=== PATIENT | female | born 1955 | race Caucasian/White ===

== ENCOUNTER 2017-02-05 12:10 | Emergency (ER) | payer MEDICARE, OTHER ==
[~2017-02-05] VITALS: Ht 165.1 cm; Wt 110.0 kg
[2017-02-05 12:11] VITALS: BP 164/76; PULSE 62; RESP 24; TEMP 98.7; O2SAT 98
--- NOTE | 2017-02-05 12:40 | PD ---
HPI Chief Complaint: Pain: Acute or Chronic Time Seen by Provider: 12:25 Travel History International Travel<30 days: No Contact w/Intl Traveler<30days: No Traveled to known affect area: No History of Present Illness HPI 61-year-old female who reports a history of traumatic brain injury which resulted in a seizure disorder approximately 11 years ago, meningioma, ascending aortic aneurysm, atrial fibrillation on eliquis, COPD, presents for evaluation of left leg pain. She reports that she flew here 1 month ago from [place]. She plans on moving here permanently. 2 weeks ago she developed pain in the posterior left lower calf/ankle region and this is the primary thing that is prompted evaluation today. The pain is worse with movement and walking. She does not recall any trauma. She does note that yesterday evening she had one episode of nausea and one episode of diarrhea but today she has had no nausea or diarrhea. She also reports that her told her that she fell out of bed in the middle the night and had generalized tonic-clonic seizure- like activity for 3 minutes. The patient reports that she had some incontinence of urine at this time. The patient does report a history of generalized tonic-clonic seizures in the past secondary to TBI and these to be quite frequent however that over the past 5 years she has been seizure free. She was previously on Topamax but this was discontinued 5 years ago. She is complaining of some headache. She denies chest pain or shortness of breath, fevers or chills, she does endorse chronic abdominal pain but denies any acute abdominal pain. Denies dysuria. She has no other complaints. [facility] Past Medical History Hx Anticoagulant Therapy: Yes Cardiovascular Problems: Yes Diabetes: Yes (?) Past Surgical History Hysterectomy: Yes Social History Alcohol Use: No Tobacco Use: No Substance Use: No Allergies-Medications (Allergen,Severity, Reaction): Coded Allergies: Codeine (Verified Allergy, Severe, Nausea/Vomiting, 02/05/17) Nitrates (Verified Allergy, Severe, Headache, 02/05/17) Nitroglycerin (Verified Allergy, Severe, Headache, 02/05/17) Sulfa (Verified Allergy, Severe, Rash, 02/05/17) Reported Meds & Prescriptions Reported Meds & Active Scripts Active Capsagel Maximum Strength Topical (Capsaicin) 0.075% Gel 1 Applic TOPICAL BID 14 Days Review of Systems Except as stated in HPI: all other systems reviewed are Neg Physical Exam Narrative GENERAL: Well-developed well-nourished female in no acute distress SKIN: Warm and dry. HEAD: Atraumatic. Normocephalic. EYES: Pupils equal and round. No scleral icterus. No injection or drainage. ENT: No nasal bleeding or discharge. Mucous membranes pink and moist. NECK: Trachea midline. No JVD. CARDIOVASCULAR: Regular rate and rhythm. No murmur appreciated. RESPIRATORY: No accessory muscle use. Clear to auscultation. Breath sounds equal bilaterally. GASTROINTESTINAL: Abdomen soft, minimal generalized tenderness without guarding or distention. MUSCULOSKELETAL: No obvious deformities. Tender to palpation left Achilles tendon. It is not ruptured. Some tenderness to palpation to the belly of the left calf musculature. No bony deformity. No pitting edema to the lower extremities. NEUROLOGICAL: Awake and alert. No obvious cranial nerve deficits. Motor grossly within normal limits. Normal speech. PSYCHIATRIC: Appropriate mood and affect; insight and judgment normal. Data Data Last Documented VS Vital Signs Date Time Temp Pulse Resp B/P Pulse Ox O2 Delivery O2 Flow Rate FiO2 02/05/17 13:12 96 02/05/17 12:11 98.7 62 24 164/76 Room Air Orders Us Leg Venous Doppler (02/05/17 12:37) Complete Blood Count With Diff (02/05/17 12:37) Electrocardiogram (02/05/17 ) Ct Brain W/O Iv Contrast(Rout) (02/05/17 ) Ecg Monitoring (02/05/17 12:37) Iv Access Insert/Monitor (02/05/17 12:37) Oximetry (02/05/17 12:37) Comprehensive Metabolic Panel (02/05/17 12:37) Sodium Chloride 0.9% Flush (Ns Flush) (02/05/17 12:45) Urinalysis - C+S If Indicated (02/05/17 12:37) Ondansetron Inj (Zofran Inj) (02/05/17 12:45) Labs Laboratory Tests Test 02/05/17 02/05/17 13:05 13:10 White Blood Count 11.1 TH/MM3 Red Blood Count 4.68 MIL/MM3 Hemoglobin 13.4 GM/DL Hematocrit 41.3 % Mean Corpuscular Volume 88.3 FL Mean Corpuscular Hemoglobin 28.6 PG Mean Corpuscular Hemoglobin 32.4 % Concent Red Cell Distribution Width 15.1 % Platelet Count 294 TH/MM3 Mean Platelet Volume 8.0 FL Neutrophils (%) (Auto) 57.9 % Lymphocytes (%) (Auto) 34.0 % Monocytes (%) (Auto) 6.5 % Eosinophils (%) (Auto) 1.1 % Basophils (%) (Auto) 0.5 % Neutrophils # (Auto) 6.5 TH/MM3 Lymphocytes # (Auto) 3.8 TH/MM3 Monocytes # (Auto) 0.7 TH/MM3 Eosinophils # (Auto) 0.1 TH/MM3 Basophils # (Auto) 0.1 TH/MM3 CBC Comment DIFF FINAL Differential Comment Sodium Level 145 MEQ/L Potassium Level 3.7 MEQ/L Chloride Level 108 MEQ/L Carbon Dioxide Level 30.5 MEQ/L Anion Gap 7 MEQ/L Blood Urea Nitrogen 19 MG/DL Creatinine 0.97 MG/DL Estimat Glomerular Filtration 58 ML/MIN Rate Random Glucose 97 MG/DL Calcium Level 8.8 MG/DL Total Bilirubin 0.5 MG/DL Aspartate Amino Transf 15 U/L (AST/SGOT) Alanine Aminotransferase 24 U/L (ALT/SGPT) Alkaline Phosphatase 54 U/L Total Protein 6.2 GM/DL Albumin 3.4 GM/DL Urine Color DARK-YELLOW Urine Turbidity HAZY Urine pH 5.5 Urine Specific [place] 1.026 Urine Protein TRACE mg/dL Urine Glucose (UA) NEG mg/dL Urine Ketones NEG mg/dL Urine Occult Blood NEG Urine Nitrite NEG Urine Bilirubin NEG Urine Urobilinogen LESS THAN 2.0 MG/DL Urine Leukocyte Esterase NEG Urine RBC 1 /hpf Urine WBC 2 /hpf Urine Squamous Epithelial 6 /hpf Cells Urine Bacteria OCC /hpf Urine Mucus FEW /lpf Microscopic Urinalysis Comment CULT NOT INDICATED MDM Medical Decision Making Medical Screen Exam Complete: Yes Emergency Medical Condition: Yes Medical Record Reviewed: Yes Interpretation(s) Doppler ultrasound CONCLUSION: No evidence for DVT. 5.8 x 1.3 x 2.6 cm Brewer's cyst in the popliteal fossa. CT brain normal Differential Diagnosis Achilles tendinitis, Achilles tendon strain, calcaneal bursitis, Achilles tendon rupture, DVT, breakthrough seizure, intracranial hemorrhage, electrolyte abnormality, hypoglycemia Narrative Course 61-year-old female referred here from [place] presents with 2 weeks of posterior left calf and left Achilles tendon pain. Examination reveals that her pain is primarily localized to left Achilles tendon suggesting tendinitis. She feels that her left lower leg is subjectively swollen although this is not objectively obvious. In addition last night she had a possible seizure, previous history of frequent seizures although she has not had one in 5 years. One episode of vomiting and diarrhea last night as well. She is complaining of headache since the fall. Plans for basic lab work, CT brain, ultrasound of left leg, urinalysis. Laboratory and imaging studies of been reviewed and found to be very reassuring. She has a Brewer cyst in the popliteal fossa which is not consistent with her area of discomfort. Negative for DVT. She appears to have tendinitis to the left Achilles tendon. She will be given capsaicin cream, encouraged to follow-up with a neurologist and primary care physician. Diagnosis Primary Impression: Achilles tendinitis Qualified Code: M76.62 - Achilles tendinitis of left lower extremity Additional Impression: Seizure Referrals: Neurologist Primary Care Physician Additional Instructions: Cream as needed. Gentle heel stretches several times a day. Ice pack several times a day to the affected area. Follow-up with a primary care physician and a neurologist. Return for any emergent medical conditions. Med/Other Pt SpecificInfo: Prescription(s) given Scripts Capsaicin Topical (Capsagel Maximum Strength Topical)0.075% Gel1 Applic TOPICAL BID 14 Days Ref 0 Prov:Isela Wisdom DO 02/05/17 Disposition: 01 DISCHARGE HOME Condition: Stable Kamron Gay February 05, 2017 12:40
[2017-02-05] MEDS ORDERED: SODIUM CHLORIDE 0.9% FLUSH 10 ML FLUSH IVF PRN (12:45)
[2017-02-05] MEDS ORDERED: ONDANSETRON HCL 4 MG/2 ML VIAL IVP ONE (12:45)
--- NOTE | 2017-02-05 13:06 | RADRPT ---
EXAM DATE/TIME: 02/05/2017 12:50 [facility] COMPARISON: No previous studies available for comparison. INDICATIONS : Frontal headache for 3 days, seizure last night with nausea and vomiting. RADIATION DOSE: 44.29 CTDIvol (mGy) MEDICAL HISTORY : Cardiovascular disease. Diabetes mellitus type 1. SURGICAL HISTORY : Hysterectomy. ENCOUNTER: Initial ACUITY: 3 days PAIN SCALE: 5/10 LOCATION: Bilateral flank TECHNIQUE: Multiple contiguous axial images were obtained of the head. Using automated exposure control and adj ustment of the mA and/or kV according to patient size, radiation dose was kept as low as reasonably a chievable to obtain optimal diagnostic quality images. FINDINGS: CEREBRUM: The ventricles are normal for age. No evidence of midline shift, mass lesion, hemorrhage or acute in farction. No extra-axial fluid collections are seen. POSTERIOR FOSSA: The cerebellum and brainstem are intact. The 4th ventricle is midline. The cerebellopontine angle i s unremarkable. EXTRACRANIAL: The visualized portion of the orbits is intact. SKULL: The calvaria is intact. No evidence of skull fracture. CONCLUSION: Normal examination. Napoleon Mai MD on February 05, 2017 at 13:04 Board Certified Radiologist. This report was verified electronically.
[2017-02-05 13:12] VITALS: O2SAT 96
[2017-02-05 13:23] LABS: AUTOMATED NEUTROPHIL # 6.5 TH/MM3 (1.8-7.7); BASOPHIL # 0.1 TH/MM3 (0-0.2); BASOPHIL % 0.5 % (0.0-2.0); EOSINOPHIL # 0.1 TH/MM3 (0-0.4); EOSINOPHIL % 1.1 % (0.0-4.0); HEMATOCRIT 41.3 % (35.0-46.0); HEMO FLAGS DIFF FINAL; LYMPHOCYTE # 3.8 TH/MM3 (1.0-4.8); MEAN CELL VOLUME 88.3 FL (80.0-100.0); MEAN CORPUSCULAR HEMOGLOBIN 28.6 PG (27.0-34.0); MEAN CORPUSCULAR HGB CONC 32.4 % (32.0-36.0); MONO % 6.5 % (0.0-8.0); NEUT % 57.9 % (16.0-70.0); PLATELET COUNT 294 TH/MM3 (150-450); RED BLOOD COUNT 4.68 MIL/MM3 (4.00-5.30); RED CELL DISTRIBUTION WIDTH 15.1 % (11.6-17.2); WHITE BLOOD COUNT 11.1 TH/MM3 (4.0-11.0)
[2017-02-05 13:43] LABS: ANION GAP 7 MEQ/L (5-15); AST (GOT) 15 U/L (15-37); BICARBONATE 30.5 MEQ/L (21.0-32.0); BLOOD UREA NITROGEN 19 MG/DL (7-18); CHLORIDE 108 MEQ/L (98-107); GLOMERULAR FILTRATION RATE 58 ML/MIN (>89); POTASSIUM 3.7 MEQ/L (3.5-5.1); SODIUM (NA) 145 MEQ/L (136-145)
[2017-02-05 13:46] LABS: BACTERIA, URINE OCC /hpf; BLOOD, URINE NEG (NEG); COMMENT (UR) CULT NOT INDICATED; CULTURE IF INDICATED CULT NOT INDICATED; GLUCOSE,URINE NEG (NEG); KETONE, URINE NEG (NEG); MUCUS URINE FEW /lpf (OCC); NITRITE,URINE NEG (NEG); PH, URINE 5.5 (5.0-8.5); SQUAMOUS EPITHELIAL CELL URINE 6 /hpf (0-5); URINE COLOR DARK-YELLOW (YELLW/STRAW)
[2017-02-05 13:46] LABS: ALKALINE PHOSPHATASE 54 U/L (45-117); ALT (GPT) 24 U/L (10-53); TOTAL BILIRUBIN ADULT 0.5 MG/DL (0.2-1.0)
--- NOTE | 2017-02-05 14:35 | RADRPT ---
EXAM DATE/TIME: 02/05/2017 13:55 [facility] COMPARISON: No previous studies available for comparison. INDICATIONS : Left leg pain. MEDICAL HISTORY : Left leg pain. SURGICAL HISTORY : Hysterectomy. ENCOUNTER: Initial ACUITY: 3 days PAIN SCORE: 5/10 LOCATION: Left leg. TECHNIQUE: Venous ultrasound of the leg was performed from the inguinal ligament to the proximal calf. Real-sterling e, color Doppler and spectral tracing, compression and augmentation techniques were used. FINDINGS: There is normal compressibility of the deep venous system from the inguinal region to the proximal ca lf. No echogenic clot is seen in the lumen of the common femoral, femoral, popliteal, and posterior tibial veins. There is a normal response of the venous system to proximal and distal augmentation an d respiration. CONCLUSION: No evidence for DVT. 5.8 x 1.3 x 2.6 cm Brewer's cyst in the popliteal fossa. Napoleon Mai MD on February 05, 2017 at 14:34 Board Certified Radiologist. This report was verified electronically.
--- NOTE | 2017-02-05 14:51 | PD ---
Physical Exam Narrative I, Dr. Wisdom, have reviewed the advance practice practitioner's documentation and am in agreement, met with the patient face to face, made the diagnosis, and the medical decision making was done by me. *My assessment and Findings: DVT vs. Brewer Cyst vs. tendonitis vs. muscle pain 61yo F with multiple complaints recently moved from [place]. Pt is mainly here because of left leg pain. Pt states it is swollen but simmons not appear more swollen than the other leg. Does have calf tenderness. US showed no evidence for DVT. 5.8 x 1.3 x 2.6cm Brewer's cyst in the popliteal fossa. Labs reviewed , negative CMP. UA showed no leukocyte or nitrite. CT brain negative. VS stable. Return precautions given. Data Data Last Documented VS Vital Signs Date Time Temp Pulse Resp B/P Pulse Ox O2 Delivery O2 Flow Rate FiO2 02/05/17 13:12 96 02/05/17 12:11 98.7 62 24 164/76 Room Air Orders Us Leg Venous Doppler (02/05/17 12:37) Complete Blood Count With Diff (02/05/17 12:37) Electrocardiogram (02/05/17 ) Ct Brain W/O Iv Contrast(Rout) (02/05/17 ) Ecg Monitoring (02/05/17 12:37) Iv Access Insert/Monitor (02/05/17 12:37) Oximetry (02/05/17 12:37) Comprehensive Metabolic Panel (02/05/17 12:37) Sodium Chloride 0.9% Flush (Ns Flush) (02/05/17 12:45) Urinalysis - C+S If Indicated (02/05/17 12:37) Ondansetron Inj (Zofran Inj) (02/05/17 12:45) Labs Laboratory Tests Test 02/05/17 02/05/17 13:05 13:10 White Blood Count 11.1 TH/MM3 Red Blood Count 4.68 MIL/MM3 Hemoglobin 13.4 GM/DL Hematocrit 41.3 % Mean Corpuscular Volume 88.3 FL Mean Corpuscular Hemoglobin 28.6 PG Mean Corpuscular Hemoglobin 32.4 % Concent Red Cell Distribution Width 15.1 % Platelet Count 294 TH/MM3 Mean Platelet Volume 8.0 FL Neutrophils (%) (Auto) 57.9 % Lymphocytes (%) (Auto) 34.0 % Monocytes (%) (Auto) 6.5 % Eosinophils (%) (Auto) 1.1 % Basophils (%) (Auto) 0.5 % Neutrophils # (Auto) 6.5 TH/MM3 Lymphocytes # (Auto) 3.8 TH/MM3 Monocytes # (Auto) 0.7 TH/MM3 Eosinophils # (Auto) 0.1 TH/MM3 Basophils # (Auto) 0.1 TH/MM3 CBC Comment DIFF FINAL Differential Comment Sodium Level 145 MEQ/L Potassium Level 3.7 MEQ/L Chloride Level 108 MEQ/L Carbon Dioxide Level 30.5 MEQ/L Anion Gap 7 MEQ/L Blood Urea Nitrogen 19 MG/DL Creatinine 0.97 MG/DL Estimat Glomerular Filtration 58 ML/MIN Rate Random Glucose 97 MG/DL Calcium Level 8.8 MG/DL Total Bilirubin 0.5 MG/DL Aspartate Amino Transf 15 U/L (AST/SGOT) Alanine Aminotransferase 24 U/L (ALT/SGPT) Alkaline Phosphatase 54 U/L Total Protein 6.2 GM/DL Albumin 3.4 GM/DL Urine Color DARK-YELLOW Urine Turbidity HAZY Urine pH 5.5 Urine Specific [place] 1.026 Urine Protein TRACE mg/dL Urine Glucose (UA) NEG mg/dL Urine Ketones NEG mg/dL Urine Occult Blood NEG Urine Nitrite NEG Urine Bilirubin NEG Urine Urobilinogen LESS THAN 2.0 MG/DL Urine Leukocyte Esterase NEG Urine RBC 1 /hpf Urine WBC 2 /hpf Urine Squamous Epithelial 6 /hpf Cells Urine Bacteria OCC /hpf Urine Mucus FEW /lpf Microscopic Urinalysis Comment CULT NOT INDICATED MDM Supervised Visit with GABRIELLE: Yes Interpretation(s) EKG: Sinus bradycardia at 51bpm. LAD. No ST segment elevation or depression. Scripts Capsaicin Topical (Capsagel Maximum Strength Topical)0.075% Gel1 Applic TOPICAL BID 14 Days Ref 0 Prov:Isela Wisdom DO 02/05/17 Isela Wisdom DO February 05, 2017 14:51
[2017-02-05] MEDS ORDERED: CAPS0.073 TOPICAL (14:56)
--- NOTE | 2017-02-06 13:04 | EKG ---
Date Performed: 02/05/2017 Time Performed: 13:08:04 PTAGE: 61 years EKG: SINUS BRADYCARDIA WITH SINUS ARRHYTHMIA BORDERLINE ECG NO PREVIOUS TRACING DOCTOR: Robert Faustin Interpretating Date/Time 02/06/2017 13:01:38
== END 2017-02-05 15:12 | disposition home or self-care (01) ==
LOC: NEPC 12:10
DX: M76.62 Achilles tendinitis, left leg (principal); R56.9 Unspecified convulsions; R00.1 Bradycardia, unspecified; I49.8 Other specified cardiac arrhythmias
CPT/HCPCS: 70450; 80053; 81001; 85025; 93005; 93971; 96374; 99284; J2405

== ENCOUNTER 2017-03-16 07:41 | Emergency (ER) | payer MEDICARE, OTHER ==
[2017-03-16] VITALS (7 sets, daily range): BP systolic 95–167; BP diastolic 53–95; PULSE 62–104; RESP 15–22; TEMP 97.9–98.2; O2SAT 96–99
[~2017-03-16] VITALS: Ht 165.1 cm; Wt 115.0 kg
[~2017-03-16 07:41] MED LIST: CAPS0.073 TOPICAL
--- NOTE | 2017-03-16 08:10 | PD ---
HPI Chief Complaint: Cardiac Complaint Time Seen by Provider: 07:56 Travel History International Travel<30 days: No Contact w/Intl Traveler<30days: No Traveled to known affect area: No History of Present Illness HPI 61yo F with PMH of aortic aneurysm, afib on eliquis, anxiety presents to the ED with c/o generalized fatigue, nausea, palpitations and intermittent left sided chest pain since yesterday. Describes pain has heaviness, left sided and nonradiating. Currently do not have sob but rather feels very anxious. Denies any fever, vomiting, abdominal pain, new focal weakness or numbness. Pt is from [place] and her physicians are there. 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 PFSH Past Medical History Hx Anticoagulant Therapy: Yes Cardiovascular Problems: Yes Diabetes: Yes (?) Past Surgical History Hysterectomy: Yes Social History Alcohol Use: No Tobacco Use: No Substance Use: No Allergies-Medications (Allergen,Severity, Reaction): Coded Allergies: Codeine (Verified Allergy, Severe, Nausea/Vomiting, 03/16/17) Nitrates (Verified Allergy, Severe, Headache, 03/16/17) Nitroglycerin (Verified Allergy, Severe, Headache, 03/16/17) Sulfa (Verified Allergy, Severe, Rash, 03/16/17) Reported Meds & Prescriptions Reported Meds & Active Scripts Active Reported Citalopram (Citalopram Hydrobromide) 40 Mg Tab 40 Mg PO HS Singulair (Montelukast Sodium) 10 Mg Tab 10 Mg PO HS Gabapentin 800 Mg Tab 800 Mg PO TID Toprol XL (Metoprolol Succinate) 50 Mg Tab 50 Mg PO BID Cymbalta DR (Duloxetine HCl) 60 Mg Capdr 60 Mg PO BID Dicyclomine (Dicyclomine HCl) 20 Mg Tab 20 Mg PO Q6HR Zantac (Ranitidine HCl) 150 Mg Tab 150 Mg PO BID Clonidine (Clonidine HCl) 0.3 Mg Tab 0.3 Mg PO HS Vitamin B Complex (B-Complex Vitamins) 1 Tab 1 Tab PO DAILY Multi-Vitamins (Multiple Vitamin) 1 Tab Tab 1 Tab PO DAILY Fluoxetine (Fluoxetine HCl) Unknown Strength Tab 1 Tab PO DAILY Prednisone 20 Mg Tab 20 Mg PO DAILY Restoril (Temazepam) 30 Mg Cap 30 Mg PO DAILY AT 1800 Vyvanse (Lisdexamfetamine Dimesylate) 70 Mg Cap 70 Mg PO DAILY Alprazolam 2 Mg Tab 4 Mg PO HS Alprazolam 0.5 Mg Tab 0.5 Mg PO BID PRN Eliquis (Apixaban) 5 Mg Tab 5 Mg PO BID Omeprazole 20 Mg Tab 20 Mg PO BID [place]cl[place] (Hydrocodone-Acetaminophen) 10-325 Mg Tab 1 Tab PO Q6H PRN Tramadol (Tramadol HCl) 50 Mg Tab 100 Mg PO Q6H PRN Ventolin Hfa 18 GM Inh (Albuterol Sulfate) 90 Mcg/Act Aer 2 Puff INH Q4H PRN Review of Systems Except as stated in HPI: all other systems reviewed are Neg Physical Exam Narrative GENERAL: 61yo F in mild distress. SKIN: Focused skin assessment warm/dry. HEAD: Atraumatic. Normocephalic. EYES: Pupils equal and round. No scleral icterus. No injection or drainage. ENT: No nasal bleeding or discharge. Mucous membranes pink and moist. NECK: Trachea midline. No JVD. CARDIOVASCULAR: Irregular and fluctuating between low 100s to 120. No murmur appreciated. RESPIRATORY: No accessory muscle use. Clear to auscultation. Breath sounds equal bilaterally. GASTROINTESTINAL: Abdomen soft, non-tender, nondistended. MUSCULOSKELETAL: No obvious deformities. No clubbing. No cyanosis. Trace lower ext edema. NEUROLOGICAL: Awake and alert. No obvious cranial nerve deficits. Motor grossly within normal limits. Normal speech. PSYCHIATRIC: Appropriate mood and affect; insight and judgment normal. Anxious. Data Data Last Documented VS Vital Signs Date Time Temp Pulse Resp B/P Pulse Ox O2 Delivery O2 Flow Rate FiO2 03/16/17 13:04 78 15 95/60 100 03/16/17 13:03 Room Air 03/16/17 07:44 97.9 Orders Electrocardiogram (03/16/17 ) Basic Metabolic Panel (Bmp) (03/16/17 08:06) Ckmb (Isoenzyme) Profile (03/16/17 08:06) Complete Blood Count With Diff (03/16/17 08:06) Magnesium (Mg) (03/16/17 08:06) Prothrombin Time / Inr (Pt) (03/16/17 08:06) Act Partial Throm Time (Ptt) (03/16/17 08:06) Troponin I (03/16/17 08:06) Chest, Single Ap (03/16/17 08:06) Ecg Monitoring (03/16/17 08:06) Bilateral Bp Monitoring (03/16/17 08:06) Iv Access Insert/Monitor (03/16/17 08:06) Oximetry (03/16/17 08:06) Oxygen Administration (03/16/17 08:06) Sodium Chloride 0.9% Flush (Ns Flush) (03/16/17 08:15) Cta Thor Abd Aorta W Iv C W3d (03/16/17 08:06) Diltiazem Inj (Cardizem Inj) (03/16/17 08:15) Lorazepam Inj (Ativan Inj) (03/16/17 08:30) Sodium Chlor 0.9% 1000 Ml Inj (Ns 1000 M (03/16/17 09:15) Iohexol 350 Inj (Omnipaque 350 Inj) (03/16/17 10:53) Labs Laboratory Tests Test 03/16/17 08:10 White Blood Count 11.3 TH/MM3 Red Blood Count 5.32 MIL/MM3 Hemoglobin 15.6 GM/DL Hematocrit 47.2 % Mean Corpuscular Volume 88.7 FL Mean Corpuscular Hemoglobin 29.3 PG Mean Corpuscular Hemoglobin 33.0 % Concent Red Cell Distribution Width 14.6 % Platelet Count 368 TH/MM3 Mean Platelet Volume 8.0 FL Neutrophils (%) (Auto) 58.9 % Lymphocytes (%) (Auto) 32.5 % Monocytes (%) (Auto) 6.2 % Eosinophils (%) (Auto) 1.8 % Basophils (%) (Auto) 0.6 % Neutrophils # (Auto) 6.6 TH/MM3 Lymphocytes # (Auto) 3.7 TH/MM3 Monocytes # (Auto) 0.7 TH/MM3 Eosinophils # (Auto) 0.2 TH/MM3 Basophils # (Auto) 0.1 TH/MM3 CBC Comment DIFF FINAL Differential Comment Prothrombin Time 11.2 SEC Prothromb Time International 1.0 RATIO Ratio Activated Partial 27.1 SEC Thromboplast Time Sodium Level 143 MEQ/L Potassium Level 4.2 MEQ/L Chloride Level 109 MEQ/L Carbon Dioxide Level 28.3 MEQ/L Anion Gap 6 MEQ/L Blood Urea Nitrogen 27 MG/DL Creatinine 1.22 MG/DL Estimat Glomerular Filtration 45 ML/MIN Rate Random Glucose 117 MG/DL Calcium Level 8.9 MG/DL Magnesium Level 2.1 MG/DL Total Creatine Kinase 55 U/L Troponin I LESS THAN 0.02 NG/ML MDM Medical Decision Making Medical Screen Exam Complete: Yes Emergency Medical Condition: Yes Interpretation(s) EKG: Afib at 118bpm. LAD. No ST segment elevation or depression. Differential Diagnosis Afib RVR vs. Dehydration vs. ACS vs. anxiety vs. aortic dissection Narrative Course 61yo F with nausea and generalized fatigue as well as atypical chest pain since yesterday. Pt has history of afib and heart rate was fluctuating between 100- 120s. Pt given cardizem 20mg IV and heart rate has been in the 70s. Pt feels much better. Pt also very anxious so ativan 1mg IV given. Labs reviewed, WBC 11.3. H/H elevated at 15.6/47.2, likely from dehydration. BUN/creatinine mildly elevated at 27/1.22. Pt given NS IVF. Troponin negative. CTA showed mild ascending thoracic aortic aneurysm measuring up to 3.9cm which pt knows about. Incidental note of large 3.8cm nodule in left thyroid lobe with mediastinal extension. Pt already knows about this. CXR showed no acute disease. Chest pain is atypical and may be related to afib RVR. However, pt does have pressure like chest pain and has risk factors. I wanted to keep pt in chest pain center for serial EKG and cardiac enzyme but pt does not want to stay. Pt states she had negative stress test 5 months ago and does not want to stay. AMA: The risks of leaving against medical advice without further evaluation treatment were discussed with the patient. These risks include cardiac dysfunction, cardiac dysrhythmia, possible heart attack, possible stroke or . The patient indicated understanding of these risks and appeared to have the capacity to make this decision. Diagnosis Primary Impression: Chest pain Qualified Code: R07.9 - Chest pain, unspecified type Patient Instructions: General Instructions Departure Forms: Tests/Procedures Additional Instructions: Please follow up with your PMD in 1-2 days. Return to the ED if you have worsening symptoms or change your mind. Med/Other Pt SpecificInfo: No Change to Meds Disposition: 07 AGAINST MEDICAL ADVICE Condition: Stable Isela Wisdom DO Mar 16, 2017 08:09
[2017-03-16] MEDS ORDERED: SODIUM CHLORIDE 0.9% FLUSH 10 ML FLUSH IVF PRN (08:15)
[2017-03-16] MEDS ORDERED: DILTIAZEM HCL 25 MG/5 ML VIAL IV ONE (08:15)
[2017-03-16] MEDS ORDERED: LORazepam 2 MG/ML VIAL IV PUSH ONE (08:30)
[2017-03-16 08:35] LABS: AUTOMATED NEUTROPHIL # 6.6 TH/MM3 (1.8-7.7); BASOPHIL # 0.1 TH/MM3 (0-0.2); BASOPHIL % 0.6 % (0.0-2.0); EOSINOPHIL # 0.2 TH/MM3 (0-0.4); EOSINOPHIL % 1.8 % (0.0-4.0); HEMATOCRIT 47.2 % (35.0-46.0); HEMO FLAGS DIFF FINAL; LYMPH % 32.5 % (9.0-44.0); LYMPHOCYTE # 3.7 TH/MM3 (1.0-4.8); MEAN CELL VOLUME 88.7 FL (80.0-100.0); MEAN CORPUSCULAR HEMOGLOBIN 29.3 PG (27.0-34.0); MONO % 6.2 % (0.0-8.0); NEUT % 58.9 % (16.0-70.0); PLATELET COUNT 368 TH/MM3 (150-450); RED BLOOD COUNT 5.32 MIL/MM3 (4.00-5.30); RED CELL DISTRIBUTION WIDTH 14.6 % (11.6-17.2); WHITE BLOOD COUNT 11.3 TH/MM3 (4.0-11.0)
[2017-03-16 08:44] LABS: PROTHROMBIN TIME - PATIENT 11.2 SEC (9.8-11.6)
[2017-03-16 08:45] LABS: APTT (PATIENT) 27.1 SEC (24.3-30.1)
[2017-03-16 08:50] LABS: ANION GAP 6 MEQ/L (5-15); BICARBONATE 28.3 MEQ/L (21.0-32.0); BLOOD UREA NITROGEN 27 MG/DL (7-18); CHLORIDE 109 MEQ/L (98-107); GLOMERULAR FILTRATION RATE 45 ML/MIN (>89); MAGNESIUM 2.1 MG/DL (1.5-2.5); POTASSIUM 4.2 MEQ/L (3.5-5.1); SODIUM (NA) 143 MEQ/L (136-145)
[2017-03-16 08:59] LABS: CREATINE KINASE 55 U/L (26-192)
--- NOTE | 2017-03-16 09:07 | RADRPT ---
EXAM DATE/TIME: 03/16/2017 08:19 [facility] COMPARISON: No previous studies available for comparison. INDICATIONS : Chest pain. MEDICAL HISTORY : Aortic Aneurysm, A-fib SURGICAL HISTORY : Fusion, cervical. ENCOUNTER: Initial ACUITY: 3 days PAIN SCORE: 4/10 LOCATION: Left upper chest FINDINGS: A single view of the chest demonstrates the lungs to be symmetrically aerated without evidence of mas s, infiltrate or effusion. The cardiomediastinal contours are unremarkable. Severe degenerative mota ge in shoulders. Previous cervical hardware fusion.. CONCLUSION: No acute disease. Zak Deal MD on March 16, 2017 at 9:04 Board Certified Radiologist. This report was verified electronically.
[2017-03-16] MEDS ORDERED: SODIUM CHLOR 0.9% 1000 ML INJ 1,000 ML IV ONE (09:15)
[2017-03-16] MEDS ORDERED: IOHEXOL 350 MG/ML 10 ML VIAL (for RAD DIAG) IV ONE (10:53)
[2017-03-16] MEDS ORDERED: CITA40TA4 PO (11:37)
[2017-03-16] MEDS ORDERED: TOPR50TA PO (11:37)
[2017-03-16] MEDS ORDERED: REST30CA PO (11:37)
[2017-03-16] MEDS ORDERED: VENTAER INH (11:37)
[2017-03-16] MEDS ORDERED: ALPR0.5T3 PO (11:37)
[2017-03-16] MEDS ORDERED: TRAM50TA PO (11:37)
[2017-03-16] MEDS ORDERED: PRED20 PO (11:37)
[2017-03-16] MEDS ORDERED: OMEP20TA PO (11:37)
[2017-03-16] MEDS ORDERED: APIX5TAB PO (11:37)
[2017-03-16] MEDS ORDERED: MULTTAB4 PO (11:37)
[2017-03-16] MEDS ORDERED: LISD70 PO (11:37)
[2017-03-16] MEDS ORDERED: ALPR2TAB3 PO (11:37)
[2017-03-16] MEDS ORDERED: CYMB60CA PO (11:37)
[2017-03-16] MEDS ORDERED: DICY20TA10 PO (11:37)
[2017-03-16] MEDS ORDERED: GABA800T PO (11:37)
[2017-03-16] MEDS ORDERED: HYDR-3366 PO (11:37)
[2017-03-16] MEDS ORDERED: ZANT150T2 PO (11:37)
[2017-03-16] MEDS ORDERED: VITATAB11 PO (11:37)
[2017-03-16] MEDS ORDERED: FLUO10TA PO (11:37)
[2017-03-16] MEDS ORDERED: CLON0.3T PO (11:37)
[2017-03-16] MEDS ORDERED: MONT10TA2 PO (11:37)
--- NOTE | 2017-03-16 12:18 | RADRPT ---
EXAM DATE/TIME: 03/16/2017 10:44 [facility] COMPARISON: CHEST SINGLE AP, March 16, 2017, 8:19. INDICATIONS : Left side chest pain, palpitations, extreme fatigue. Known history of ascending aortic aneurysm. IV CONTRAST: 100 cc Omnipaque 350 (iohexol) IV RADIATION DOSE: 16.97 CTDIvol (mGy) MEDICAL HISTORY : Aneurysm, abdominal. Diverticulitis. Hypertension.Asthma, uterine cancer. SURGICAL HISTORY : Appendectomy. Hysterectomy. ENCOUNTER: Initial ACUITY: 1 day PAIN SCALE: 4/10 LOCATION: Left upper chest TECHNIQUE: Volumetric scanning was performed using a multi-row detector CT scanner. The data was post processed with a variety of visualization algorithms including full volume maximum intensity projection, multi -planar sliding thin slab reformation, curved planar reformation, and surface rendering techniques. Using automated exposure control and adjustment of the mA and/or kV according to patient size, radiat ion dose was kept as low as reasonably achievable to obtain optimal diagnostic quality images. DICOM format image data is available electronically for review and comparison. FINDINGS: LUNGS: Minimal by basilar atelectasis/scarring. No significant focal pleural or parenchymal abnormality. MEDIASTINUM: Heart is normal in appearance without significant pericardial effusion. Mitral valve calcifications a re noted. The central pulmonary arteries are patent. There is a large hypodense nodule in the left lo be of thyroid measuring 3.8 x 1.7 cm with additional anterior mediastinal heterogeneous density mass measuring 1.7 x 3.0 cm likely thyroid in etiology. ABDOMEN: The liver and spleen are free of focal defects. The gallbladder and pancreas demonstrate no abnormali ty. The adrenal glands are normal. Kidneys and assessment of enhancement without evidence for radiopa que renal calculi or hydronephrosis. There are several small peripelvic cysts on the right side. Mild to moderate sigmoid diverticulosis without evidence of significant inflammatory changes. Bowel other arreola appears unremarkable. No free fluid or abdominal masses are identified. No para-aortic adenopath y is seen. There is a fat containing inferior anterior abdominal wall hernia. PELVIS: No evidence of free fluid or pelvic mass. No abnormally enlarged inguinal or retroperitoneal lymph no jodi are present. The bladder is unremarkable. THORACIC AORTA: The thoracic aorta is mildly aneurysmal measuring up to 3.9 cm. There is standard 3 vessel arch anato my. Proximal arch vessels are patent. The thoracic arch and descending thoracic aorta are normal in c aliber. The descending thoracic measures 2.7 cm in diameter. There is no evidence for dissection. ABDOMINAL AORTA: The aorta is normal in caliber without aneurysm or dissection. The renal arteries are patent bilater ally. The proximal celiac and superior mesenteric arteries are patent and normal in diameter. PELVIC VESSELS: The internal iliac and external iliac vessels are patent without significant aneurysm, stenosis, or d issection. CONCLUSION: 1. Mild ascending thoracic aortic aneurysm measuring up to 3.9 cm. Otherwise, the thoracic aorta and abdominal aorta are normal in caliber without evidence for dissection as questioned. 2. Central pulmonary arteries are patent. 3. Incidental note of large 3.8 cm nodule in the left thyroid lobe with mediastinal extension. Furthe r evaluation with ultrasound is recommended on an outpatient basis. 4. Sigmoid diverticulosis without evidence for diverticulitis. 5. Fat-containing inferior anterior abdominal wall hernia. John Grimes MD on March 16, 2017 at 11:51 Board Certified Radiologist. This report was verified electronically.
--- NOTE | 2017-03-16 15:35 | EKG ---
Date Performed: 03/16/2017 Time Performed: 07:53:04 PTAGE: 61 years EKG: ATRIAL FIBRILLATION WITH RAPID VENTRICULAR RESPONSE BORDERLINE LEFT AXIS DEVIATION ABNORMAL RHYTHM ECG PREVIOUS TRACING : 02/05/2017 13.08 DOCTOR: Tony Kramer Interpretating Date/Time 03/16/2017 15:34:21
== END 2017-03-16 22:50 | disposition left against medical advice (07) ==
LOC: NEPC 07:41
DX: R07.89 Other chest pain (principal); R11.0 Nausea; R53.83 Other fatigue; I48.91 Unspecified atrial fibrillation; Z79.899 Other long term (current) drug therapy; Z88.2 Allergy status to sulfonamides; Z88.8 Allergy status to other drugs, medicaments and biological substances
CPT/HCPCS: 71010; 71275; 74174; 80048; 82550; 83735; 84484; 85025; 85610; 85730; 93005; 96361; 96374; 96375; 99285; J2060; J7030; Q9967

== ENCOUNTER 2017-08-15 20:08 | Emergency (ER) | payer MEDICARE, OTHER ==
[~2017-08-15] VITALS: Ht 172.7 cm; Wt 110.0 kg
[~2017-08-15 20:08] MED LIST changes: +ALPR0.5T3 PO; +ALPR2TAB3 PO; +APIX5TAB PO; -CAPS0.073 TOPICAL; +CITA40TA4 PO; +CLON0.3T PO; +CYMB60CA PO; +DICY20TA10 PO; +FLUO10TA PO; +GABA800T PO; +HYDR-3366 PO; +LISD70 PO; +MONT10TA2 PO; +MULTTAB4 PO; +OMEP20TA93 PO; +PRED20 PO; +REST30CA PO; +TOPR50TA PO; +TRAM50TA PO; +VENTAER INH; +VITATAB11 PO; +ZANT150T2 PO
[2017-08-15 20:12] VITALS: BP 169/72; PULSE 105; RESP 20; TEMP 99.3; O2SAT 98
[2017-08-15 20:21] VITALS: BP 128/73; PULSE 94; RESP 18; TEMP 98.3; O2SAT 99
[2017-08-15] MEDS ORDERED: MORPHINE SULFATE 4 MG/ML INJ IV PUSH ONE ×2 (20:30→22:00)
[2017-08-15] MEDS ORDERED: SODIUM CHLORIDE 0.9% FLUSH 10 ML FLUSH IVF PRN (20:30)
[2017-08-15] MEDS ORDERED: ONDANSETRON HCL 4 MG/2 ML VIAL IV PUSH ONE (20:30)
[2017-08-15] MEDS ORDERED: ASPIRIN 81 MG CHEW TAB PO ONE (20:30)
--- NOTE | 2017-08-15 20:39 | PD ---
HPI Chief Complaint: Cardiac Complaint Time Seen by Provider: 20:15 Travel History International Travel<30 days: No Contact w/Intl Traveler<30days: No Traveled to known affect area: No History of Present Illness HPI The patient is a 62-year-old female who presents to the emergency department for multiple complaints. The patient states she's been undergoing a workup for diffuse body aches by her primary physician (Dr Altman), her pain interventionalist (Dr Monahan), and her religious education coordinator (Dr Vail). The patient states she was recently placed on a fentanyl patch and is still taking prednisone 10 mg daily, that was initially prescribed by her physician in [place], [place]. The patient states she's been having increasing pain recently underwent an MRI of the cervical spine and lumbar spine. She is scheduled undergo further testing tomorrow. She also states she had an outpatient CT of the abdomen and pelvis with IV contrast performed at [facility] earlier today, does not know the results. She does complain of intermittent left-sided flank pain but denies any dysuria, frequency, urgency, or hematuria. She does have a previous history of appendectomy. She does complain of mild nausea without any current vomiting. The patient also complains of mild shortness of breath and feels like her heart is racing. She does have a history of atrial fibrillation currently takes Eliquis. The patient states she is scheduled undergo a cardiac stress test later this year. Symptoms are moderate, multisystem based, and there are no current alleviating or exacerbating factors. PFSH Past Medical History Hx Anticoagulant Therapy: Yes AAA: Yes Asthma: Yes Atrial Fibrillation: Yes Anxiety: Yes Depression: Yes Heart Rhythm Problems: Yes (afib) Cancer: Yes (uterine) Cardiovascular Problems: Yes High Cholesterol: Yes Cerebrovascular Accident: Yes (TIA ) Diabetes: Yes Patient Takes Glucophage: Yes Diminished Hearing: No Diverticulitis: Yes Gastrointestinal Disorders: Yes (diverticulitis) Hypertension: Yes Neurologic: Yes (benign brain tumor) Pneumonia: Yes Thyroid Disease: Yes (mass) Tetanus Vaccination: < 5 Years Influenza Vaccination: No ?: Not Past Surgical History Abdominal Surgery: Yes Appendectomy: Yes Gynecologic Surgery: Yes Hysterectomy: Yes Neurologic Surgery: Yes (scalp repair) Social History Alcohol Use: No Tobacco Use: No Substance Use: No Allergies-Medications (Allergen,Severity, Reaction): Coded Allergies: Sulfa (Sulfonamide Antibiotics) (Unverified Allergy, Severe, Rash, 05/02/17 ) codeine (Unverified Allergy, Severe, Nausea/Vomiting, 05/02/17) isosorbide (Unverified Allergy, Severe, Headache, 05/02/17) nitroglycerin (Unverified Allergy, Severe, Headache, 05/02/17) nitroprusside sodium (Unverified Allergy, Severe, Headache, 05/02/17) Reported Meds & Prescriptions Reported Meds & Active Scripts Active Reported Citalopram (Citalopram Hydrobromide) 40 Mg Tab 40 Mg PO HS Singulair (Montelukast Sodium) 10 Mg Tab 10 Mg PO HS Gabapentin 800 Mg Tab 800 Mg PO TID Toprol XL (Metoprolol Succinate) 50 Mg Tab 50 Mg PO BID Cymbalta DR (Duloxetine HCl) 60 Mg Capdr 60 Mg PO BID Dicyclomine (Dicyclomine HCl) 20 Mg Tab 20 Mg PO Q6HR Zantac (Ranitidine HCl) 150 Mg Tab 150 Mg PO BID Clonidine (Clonidine HCl) 0.3 Mg Tab 0.3 Mg PO HS Vitamin B Complex (B-Complex Vitamins) 1 Tab 1 Tab PO DAILY Multi-Vitamins (Multiple Vitamin) 1 Tab Tab 1 Tab PO DAILY Fluoxetine (Fluoxetine HCl) Unknown Strength Tab 1 Tab PO DAILY Prednisone 20 Mg Tab 20 Mg PO DAILY Restoril (Temazepam) 30 Mg Cap 30 Mg PO DAILY AT 1800 Vyvanse (Lisdexamfetamine Dimesylate) 70 Mg Cap 70 Mg PO DAILY Alprazolam 2 Mg Tab 4 Mg PO HS Alprazolam 0.5 Mg Tab 0.5 Mg PO BID PRN Eliquis (Apixaban) 5 Mg Tab 5 Mg PO BID Omeprazole 20 Mg Tab 20 Mg PO BID [place]set (Hydrocodone-Acetaminophen) 10-325 Mg Tab 1 Tab PO Q6H PRN Tramadol (Tramadol HCl) 50 Mg Tab 100 Mg PO Q6H PRN Ventolin Hfa 18 GM Inh (Albuterol Sulfate) 90 Mcg/Act Aer 2 Puff INH Q4H PRN Review of Systems Except as stated in HPI: all other systems reviewed are Neg General / Constitutional: No: Fever Cardiovascular: Positive: Chest Pain or Discomfort, Palpitations, Irregular Rhythm, Tachycardia Respiratory: Positive: Shortness of Breath Gastrointestinal: Positive: Nausea, Abdominal Pain, No: Vomiting, Diarrhea Genitourinary: No: Dysuria, Hematuria Musculoskeletal: Positive: Myalgias, Edema, Pain Neurologic: No: Dizziness Physical Exam Narrative GENERAL: Awake, alert, nontoxic-appearing 62-year-old female who appears her stated age and is in no acute respiratory distress. SKIN: Focused skin assessment warm/dry. HEAD: Atraumatic. Normocephalic. EYES: Pupils equal and round. No scleral icterus. No injection or drainage. ENT: No nasal bleeding or discharge. Mucous membranes pink and moist. NECK: Trachea midline. No JVD. CARDIOVASCULAR: Regular rate and rhythm. No murmur appreciated. Heart rate in the 90s. RESPIRATORY: No accessory muscle use. Clear to auscultation. Breath sounds equal bilaterally. GASTROINTESTINAL: Abdomen soft, obese, mild tenderness left lower quadrant but no rebound tenderness, guarding, rigidity. MUSCULOSKELETAL: No obvious deformities. No clubbing. No cyanosis. Lower extremity pitting edema noted. NEUROLOGICAL: Awake and alert. No obvious cranial nerve deficits. Motor grossly within normal limits. Normal speech. Nonfocal. PSYCHIATRIC: Appropriate mood and affect; insight and judgment normal. Data Data Last Documented VS Vital Signs Date Time Temp Pulse Resp B/P (MAP) Pulse Ox O2 Delivery O2 Flow Rate FiO2 08/15/17 20:40 128/73 (91) 08/15/17 20:40 99 Room Air 08/15/17 20:21 98.3 94 18 Orders Orders Electrocardiogram (08/15/17 20:28) B-Type Natriuretic Peptide (08/15/17 20:28) Ckmb (Isoenzyme) Profile (08/15/17 20:28) Complete Blood Count With Diff (08/15/17 20:28) Comprehensive Metabolic Panel (08/15/17 20:28) Magnesium (Mg) (08/15/17 20:28) Prothrombin Time / Inr (Pt) (08/15/17 20:28) Act Partial Throm Time (Ptt) (08/15/17 20:28) Troponin I (08/15/17 20:28) Lipase (08/15/17 20:28) Chest, Single Ap (08/15/17 20:28) Ecg Monitoring (08/15/17 20:28) Bilateral Bp Monitoring (08/15/17 20:28) Iv Access Insert/Monitor (08/15/17 20:28) Oximetry (08/15/17 20:28) Oxygen Administration (08/15/17 20:28) Aspirin Chew (Aspirin Chew) (08/15/17 20:30) Morphine Inj (Morphine Inj) (08/15/17 20:30) Sodium Chloride 0.9% Flush (Ns Flush) (08/15/17 20:30) Ondansetron Inj (Zofran Inj) (08/15/17 20:30) Morphine Inj (Morphine Inj) (08/15/17 22:00) Ed Discharge Order (08/16/17 00:01) Labs Laboratory Tests Test 08/15/17 20:30 White Blood Count 7.8 TH/MM3 Red Blood Count 4.51 MIL/MM3 Hemoglobin 13.2 GM/DL Hematocrit 39.7 % Mean Corpuscular Volume 88.0 FL Mean Corpuscular Hemoglobin 29.2 PG Mean Corpuscular Hemoglobin Concent 33.1 % Red Cell Distribution Width 14.2 % Platelet Count 317 TH/MM3 Mean Platelet Volume 7.5 FL Neutrophils (%) (Auto) 66.8 % Lymphocytes (%) (Auto) 19.8 % Monocytes (%) (Auto) 10.7 % Eosinophils (%) (Auto) 2.3 % Basophils (%) (Auto) 0.4 % Neutrophils # (Auto) 5.2 TH/MM3 Lymphocytes # (Auto) 1.5 TH/MM3 Monocytes # (Auto) 0.8 TH/MM3 Eosinophils # (Auto) 0.2 TH/MM3 Basophils # (Auto) 0.0 TH/MM3 CBC Comment DIFF FINAL Differential Comment Prothrombin Time 11.5 SEC Prothromb Time International Ratio 1.0 RATIO Activated Partial Thromboplast Time 30.3 SEC Blood Urea Nitrogen 18 MG/DL Creatinine 1.00 MG/DL Random Glucose 104 MG/DL Total Protein 6.7 GM/DL Albumin 3.2 GM/DL Calcium Level 8.8 MG/DL Magnesium Level 1.9 MG/DL Alkaline Phosphatase 66 U/L Aspartate Amino Transf (AST/SGOT) 27 U/L Alanine Aminotransferase (ALT/SGPT) 24 U/L Total Bilirubin 0.5 MG/DL Sodium Level 140 MEQ/L Potassium Level 3.7 MEQ/L Chloride Level 104 MEQ/L Carbon Dioxide Level 32.1 MEQ/L Anion Gap 4 MEQ/L Estimat Glomerular Filtration Rate 56 ML/MIN Total Creatine Kinase 85 U/L Troponin I LESS THAN 0.02 NG/ML B-Type Natriuretic Peptide 66 PG/ML Lipase 50 U/L MDM Medical Decision Making Medical Screen Exam Complete: Yes Emergency Medical Condition: Yes Medical Record Reviewed: Yes Interpretation(s) EKG reveals normal sinus rhythm with a rate in 94. No ischemic changes or ectopy noted. Differential Diagnosis Differential diagnosis includes nephrolithiasis, pancreatitis, diverticulitis, anasarca, hyponatremia, hypoalbuminemia, volume overload, pulmonary edema, pulmonary embolism, arrhythmia. Narrative Course IV was established, labs are drawn and sent, and the patient was placed on cardiac telemetry monitoring and continuous pulse oximetry monitoring. EKG was ordered and interpreted. Chest x-ray was obtained. The patient was administered morphine 4 mg intravenously and Zofran 4 mg intravenously. I reviewed the outpatient packs for [place] [facility], the patient's CT results were not visible, I was able to review her MRI of the cervical spine and lumbar spine that were performed in June 2017. I talked with the CT tax who discussed the patient with the radiologist reading at [facility], the patient's CT revealed diverticulosis and perirectal inflammation. I then did a rectal examination with a female hot header operator in the room, there was no visible perirectal cellulitis. No erythema noted. The patient states she recently used 2 enemas for constipation and has a history of previous diverticular surgery in the sigmoid region as well as a history of pelvic floor prolapse. The patient is afebrile and there is no white count, I will not start antibiotics. She is advised to follow-up with her primary physician on Monday and/or . Return if symptoms worsen or progress. Diagnosis Primary Impression: Abdominal pain Qualified Codes: R10.32 - Left lower quadrant pain Patient Instructions: General Instructions Additional Instructions: Please provide the patient a copy of her lab results at discharge. Follow-up with your primary physician for the official report of your CT that was performed at [facility]. Monitor for signs of fever. Return if symptoms worsen or progress. Med/Other Pt SpecificInfo: Prescription(s) given Scripts Hydrocodone-Acetaminophen (Sunset) 10-325 Mg Tab 1 TAB PO Q6H Y for PAIN, #12 TAB 0 Refills Prov: Homero Lopez MD 08/16/17 Disposition: 01 DISCHARGE HOME Condition: Stable Homero Lopez MD Aug 15, 2017 20:39
[2017-08-15 20:40] VITALS: BP 128/73; O2SAT 100
[2017-08-15 21:05] LABS: AUTOMATED NEUTROPHIL # 5.2 TH/MM3 (1.8-7.7); BASOPHIL % 0.4 % (0.0-2.0); EOSINOPHIL # 0.2 TH/MM3 (0-0.4); EOSINOPHIL % 2.3 % (0.0-4.0); HEMATOCRIT 39.7 % (35.0-46.0); HEMO FLAGS DIFF FINAL; LYMPH % 19.8 % (9.0-44.0); LYMPHOCYTE # 1.5 TH/MM3 (1.0-4.8); MEAN CORPUSCULAR HEMOGLOBIN 29.2 PG (27.0-34.0); MEAN CORPUSCULAR HGB CONC 33.1 % (32.0-36.0); MONO % 10.7 % (0.0-8.0); NEUT % 66.8 % (16.0-70.0); PLATELET COUNT 317 TH/MM3 (150-450); RED BLOOD COUNT 4.51 MIL/MM3 (4.00-5.30); RED CELL DISTRIBUTION WIDTH 14.2 % (11.6-17.2); WHITE BLOOD COUNT 7.8 TH/MM3 (4.0-11.0)
[2017-08-15 21:13] LABS: APTT (PATIENT) 30.3 SEC (24.3-30.1); PROTHROMBIN TIME - PATIENT 11.5 SEC (9.8-11.6)
[2017-08-15 21:25] LABS: ANION GAP 4 MEQ/L (5-15); AST (GOT) 27 U/L (15-37); BICARBONATE 32.1 MEQ/L (21.0-32.0); BLOOD UREA NITROGEN 18 MG/DL (7-18); CHLORIDE 104 MEQ/L (98-107); GLOMERULAR FILTRATION RATE 56 ML/MIN (>89); MAGNESIUM 1.9 MG/DL (1.5-2.5); POTASSIUM 3.7 MEQ/L (3.5-5.1); SODIUM (NA) 140 MEQ/L (136-145)
--- NOTE | 2017-08-15 21:30 | RADRPT ---
EXAM DATE/TIME: 08/15/2017 20:49 [facility] COMPARISON: No previous studies available for comparison. INDICATIONS : Shortness of breath, nausea, left rib pain. MEDICAL HISTORY : Hypertension. Chronic obstructive pulmonary disease. Myocardial infarction. SURGICAL HISTORY : Fusion, cervical. ENCOUNTER: Initial ACUITY: 2 days PAIN SCORE: 10/10 LOCATION: Left posterior rib pain. FINDINGS: Heart size is mildly enlarged. Minimal basilar atelectasis. No pneumothorax or pleural effusion. Prev ious fusion cervical spine. CONCLUSION: 1. No acute findings. Willi Reynolds MD on August 15, 2017 at 21:15 Board Certified Radiologist. This report was verified electronically.
[2017-08-15 21:31] LABS: ALKALINE PHOSPHATASE 66 U/L (45-117); ALT (GPT) 24 U/L (10-53); TOTAL BILIRUBIN ADULT 0.5 MG/DL (0.2-1.0)
[2017-08-15 21:41] LABS: CREATINE KINASE 85 U/L (26-192)
[2017-08-16] MEDS ORDERED: HYDR-3366 PO (00:05)
--- NOTE | 2017-08-16 05:03 | EKG ---
Date Performed: 08/15/2017 Time Performed: 20:21:47 PTAGE: 62 years EKG: Sinus rhythm BORDERLINE LEFT AXIS DEVIATION BORDERLINE ECG Compared to prior electrocardiogram, Normal sinus rhyt hm has replaced possible atrial fibrillation . PREVIOUS TRACING : 03/16/2017 07.53 DOCTOR: Cali Tenorio Interpretating Date/Time 08/16/2017 05:01:12
== END 2017-08-16 01:11 | disposition home or self-care (01) ==
LOC: NEPE 20:08
DX: R10.32 Left lower quadrant pain (principal); R94.31 Abnormal electrocardiogram [ECG] [EKG]; I10 Essential (primary) hypertension; E11.9 Type 2 diabetes mellitus without complications; I71.4 Abdominal aortic aneurysm, without rupture; E78.00 Pure hypercholesterolemia, unspecified; F32.9 Major depressive disorder, single episode, unspecified; Z79.01 Long term (current) use of anticoagulants; Z85.42 Personal history of malignant neoplasm of other parts of uterus; Z86.73 Personal history of transient ischemic attack (TIA), and cerebral infarction without residual deficits
CPT/HCPCS: 71010; 80053; 82550; 83690; 83735; 83880; 84484; 85025; 85610; 85730; 93005; 96374; 96375; 96376; 99285; J2270; J2405

== ENCOUNTER 2017-10-03 11:49 | Day surgery (SDC) | payer MEDICARE, OTHER ==
[2017-10-03] MEDS ORDERED: LACTATED RINGER'S 1000 ML IV PRN (12:00)
[2017-10-03] MEDS ORDERED: CHLORHEXIDINE GLUCONATE 2 % 1 PACK (2 CLOTHS) TOPICAL PRN (12:00)
[2017-10-03] MEDS ORDERED: POVIDONE IODINE 5% (ANTISEPSIS KIT) 4 APPLICATIONS EACH NARE PRN (12:00)
[2017-10-03] MEDS ORDERED: SODIUM CHLORID 0.9% 500 ML IV PRN (12:00)
[2017-10-03] MEDS ORDERED: METOPROLOL TARTRATE 25 MG TAB PO PRN (12:00)
--- NOTE | 2017-10-04 10:49 | EKG ---
Date Performed: 10/03/2017 Time Performed: 12:10:54 PTAGE: 62 years EKG: Sinus bradycardia with sinus arrhythmia with interpolated PVC(s) Normal ECG except for rate NO PREVIOUS TRACING DOCTOR: Julian Linn Interpretating Date/Time 10/04/2017 10:48:29
== END 2017-10-03 13:15 | disposition home or self-care (01) ==
LOC: HDOC 11:49 → HDIC 11:49 → HDOC 13:15
PROVIDERS: ATTEND Internal Medicine Interventional Cardiology
DX: I48.0 Paroxysmal atrial fibrillation (principal); Z53.8 Procedure and treatment not carried out for other reasons
CPT/HCPCS: 93005; G0463; 99211

== ENCOUNTER 2018-03-04 19:24 | Emergency (ER) | payer MEDICARE, OTHER ==
[~2018-03-04] VITALS: Ht 172.7 cm; Wt 144.0 kg
[2018-03-04 19:29] VITALS: BP 149/85; PULSE 87; RESP 20; TEMP 98.6; O2SAT 95
[2018-03-04] MEDS ORDERED: DALBAVANCIN INJ 1,500 MG in DEXTROSE 5% IN WATE 500 ML INJ 500 ML IV STA ×2 (20:29)
[2018-03-04] MEDS ORDERED: LIDOCAINE HCL 1% 50 ML VIAL INFIL ONE (20:30)
[2018-03-04] MEDS ORDERED: PHARMACY INFORMATION XX ONE (20:30)
[2018-03-04] MEDS ORDERED: LIDOCAINE HCL 1% PF 30 ML VIAL ONE (20:33)
--- NOTE | 2018-03-04 20:47 | PD ---
HPI Chief Complaint: Skin Problem Time Seen by Provider: 20:12 Travel History International Travel<30 days: No Contact w/Intl Traveler<30days: No Traveled to known affect area: No History of Present Illness HPI Is a 62-year-old woman who presents to the emerged department complaining of pain and swelling redness to the left leg. She states is been ongoing for 5 or 6 days. Her primary physician was worried that she may have had a spider bite. She has been treated with clindamycin. Over the past day or so it started draining. No fevers. She is on prednisone 20 mg daily for neck pain. She has been on this for quite some time. Other medical history includes TBI, A. fib, CHF, borderline diabetes. She started having some drainage from the wound. No improvement with clindamycin. No other complaints. History Past Medical History Narrative Medical TBI A. fib, on Eliquis CHF Borderline diabetes Thyroid disease Social History Alcohol Use: No Tobacco Use: No Allergies-Medications (Allergen,Severity, Reaction): Coded Allergies: Sulfa (Sulfonamide Antibiotics) (Unverified Allergy, Severe, Rash, 03/04/18 ) codeine (Unverified Allergy, Severe, Nausea/Vomiting, 03/04/18) isosorbide (Unverified Allergy, Severe, Headache, 03/04/18) nitroglycerin (Unverified Allergy, Severe, Headache, 03/04/18) nitroprusside sodium (Unverified Allergy, Severe, Headache, 03/04/18) Reported Meds & Prescriptions Reported Meds & Active Scripts Active [place] (Hydrocodone-Acetaminophen) 10-325 Mg Tab 1 Tab PO Q6H PRN Reported Metoprolol Succinate ER 24 HR (Metoprolol Succinate) 100 Mg Tab 100 Mg PO BID Citalopram (Citalopram Hydrobromide) 40 Mg Tab 40 Mg PO HS Gabapentin 800 Mg Tab 800 Mg PO TID Dicyclomine (Dicyclomine HCl) 20 Mg Tab 20 Mg PO Q6HR Zantac (Ranitidine HCl) 150 Mg Tab 150 Mg PO BID Vitamin B Complex (B-Complex Vitamins) 1 Tab 1 Tab PO DAILY Multi-Vitamins (Multiple Vitamin) 1 Tab Tab 1 Tab PO DAILY Prednisone 20 Mg Tab 20 Mg PO DAILY Restoril (Temazepam) 30 Mg Cap 30 Mg PO DAILY AT 1800 Alprazolam 2 Mg Tab 2 Mg PO HS Eliquis (Apixaban) 5 Mg Tab 5 Mg PO BID Omeprazole 20 Mg Tab 20 Mg PO BID [place] (Hydrocodone-Acetaminophen) 10-325 Mg Tab 1 Tab PO Q6H PRN Tramadol (Tramadol HCl) 50 Mg Tab 100 Mg PO Q6H PRN Ventolin Hfa 18 GM Inh (Albuterol Sulfate) 90 Mcg/Act Aer 2 Puff INH Q4H PRN Review of Systems Except as stated in HPI: all other systems reviewed are Neg Physical Exam Narrative GENERAL: 62-year-old woman, generally well-appearing, no acute distress. Obese. SKIN: Focused skin assessment warm/dry. HEAD: Atraumatic. Normocephalic. EYES: Pupils equal and round. No scleral icterus. No injection or drainage. ENT: No nasal bleeding or discharge. Mucous membranes pink and moist. NECK: Trachea midline. No JVD. CARDIOVASCULAR: Regular rate and rhythm. No murmur appreciated. RESPIRATORY: No accessory muscle use. Clear to auscultation. Breath sounds equal bilaterally. GASTROINTESTINAL: Abdomen soft, non-tender, nondistended. Hepatic and splenic margins not palpable. MUSCULOSKELETAL: No obvious deformities. Focused examination of the left leg reveals a large patch of erythema, roughly 10 x 10 cm or so, with a central area of some ecchymosis and a little bit of purulent drainage. Legs are obese but I do not see any obvious asymmetry or swelling. Data Data Last Documented VS Vital Signs Date Time Temp Pulse Resp B/P (MAP) Pulse Ox O2 Delivery O2 Flow Rate FiO2 03/04/18 22:17 98.5 70 16 141/59 (86) 95 Orders Orders Complete Blood Count With Diff (03/04/18 20:29) Comprehensive Metabolic Panel (03/04/18 20:29) Pharmacy Information ([facility] Pharm[facility] Info (03/04/18 20:30) Dalbavancin Inj (Dalvance Inj) (03/04/18 20:29) Driss Bandage (03/04/18 20:29) Elevate (03/04/18 20:29) Document (03/04/18 20:29) Measurements (03/04/18 20:29) Lidocaine 1% Inj (50 Ml) (Xylocaine 1% I (03/04/18 20:30) Lidocaine Pf 1% Inj (Xylocaine-Mpf 1% In (03/04/18 20:33) Wound Culture And Gram Stain (03/04/18 20:47) Lorazepam (Ativan) (03/04/18 21:15) Labs Laboratory Tests Test 03/04/18 20:20 White Blood Count 10.6 TH/MM3 Red Blood Count 4.44 MIL/MM3 Hemoglobin 13.7 GM/DL Hematocrit 40.6 % Mean Corpuscular Volume 91.4 FL Mean Corpuscular Hemoglobin 30.9 PG Mean Corpuscular Hemoglobin Concent 33.8 % Red Cell Distribution Width 14.4 % Platelet Count 264 TH/MM3 Mean Platelet Volume 8.0 FL Neutrophils (%) (Auto) 77.3 % Lymphocytes (%) (Auto) 16.0 % Monocytes (%) (Auto) 4.0 % Eosinophils (%) (Auto) 2.2 % Basophils (%) (Auto) 0.5 % Neutrophils # (Auto) 8.2 TH/MM3 Lymphocytes # (Auto) 1.7 TH/MM3 Monocytes # (Auto) 0.4 TH/MM3 Eosinophils # (Auto) 0.2 TH/MM3 Basophils # (Auto) 0.1 TH/MM3 CBC Comment DIFF FINAL Differential Comment Blood Urea Nitrogen 32 MG/DL Creatinine 1.60 MG/DL Random Glucose 148 MG/DL Total Protein 6.8 GM/DL Albumin 3.5 GM/DL Calcium Level 9.1 MG/DL Alkaline Phosphatase 61 U/L Aspartate Amino Transf (AST/SGOT) 17 U/L Alanine Aminotransferase (ALT/SGPT) 22 U/L Total Bilirubin 0.4 MG/DL Sodium Level 142 MEQ/L Potassium Level 3.4 MEQ/L Chloride Level 103 MEQ/L Carbon Dioxide Level 32.3 MEQ/L Anion Gap 7 MEQ/L Estimat Glomerular Filtration Rate 33 ML/MIN [facility] Medical Decision Making Medical Screen Exam Complete: Yes Emergency Medical Condition: Yes Interpretation(s) LABS: CBC is unremarkable. CMP is remarkable for some renal dysfunction. Differential Diagnosis Cellulitis, abscess, spider bite, other Narrative Course Medical decision making Is a 59-year-old woman presents to the emergency department the soft tissue wound on her leg below the knee likely staph. No improvement with clindamycin. She is on prednisone. I think she be a good candidate for Dalvance. Will get wound culture, labs, likely discharge. Diagnosis Primary Impression: Cellulitis Patient Instructions: General Instructions Additional Instructions: Follow-up with your primary doctor in the next 2-4 days. Return to the emergency department any worsening fever, swelling, spreading redness, or any other new or worsening symptoms. Med/Other Pt SpecificInfo: No Change to Meds Disposition: 01 DISCHARGE HOME Condition: Stable Julian Yan MD Mar 04, 2018 20:47
[2018-03-04 20:57] LABS: AUTOMATED NEUTROPHIL # 8.2 TH/MM3 (1.8-7.7); BASOPHIL # 0.1 TH/MM3 (0-0.2); BASOPHIL % 0.5 % (0.0-2.0); EOSINOPHIL # 0.2 TH/MM3 (0-0.4); EOSINOPHIL % 2.2 % (0.0-4.0); HEMATOCRIT 40.6 % (35.0-46.0); HEMOGLOBIN 13.7 GM/DL (11.6-15.3); LYMPHOCYTE # 1.7 TH/MM3 (1.0-4.8); MEAN CELL VOLUME 91.4 FL (80.0-100.0); MEAN CORPUSCULAR HEMOGLOBIN 30.9 PG (27.0-34.0); MEAN CORPUSCULAR HGB CONC 33.8 % (32.0-36.0); MONOCYTE # 0.4 TH/MM3 (0-0.9); NEUT % 77.3 % (16.0-70.0); PLATELET COUNT 264 TH/MM3 (150-450); RED BLOOD COUNT 4.44 MIL/MM3 (4.00-5.30); RED CELL DISTRIBUTION WIDTH 14.4 % (11.6-17.2); WHITE BLOOD COUNT 10.6 TH/MM3 (4.0-11.0)
[2018-03-04 21:11] LABS: CHLORIDE 103 MEQ/L (98-107); SODIUM (NA) 142 MEQ/L (136-145)
[2018-03-04 21:14] LABS: ALBUMIN 3.5 GM/DL (3.4-5.0); CALCIUM 9.1 MG/DL (8.5-10.1)
[2018-03-04 21:15] LABS: BICARBONATE 32.3 MEQ/L (21.0-32.0); BLOOD UREA NITROGEN 32 MG/DL (7-18); GLUCOSE,RANDOM 148 MG/DL (74-106)
[2018-03-04] MEDS ORDERED: LORazepam 1 MG TAB PO ONE (21:15)
[2018-03-04 21:17] LABS: ALT (GPT) 22 U/L (10-53)
[2018-03-04 21:18] LABS: AST (GOT) 17 U/L (15-37); GLOMERULAR FILTRATION RATE 33 ML/MIN (>89)
[2018-03-04 21:19] LABS: TOTAL BILIRUBIN ADULT 0.4 MG/DL (0.2-1.0); TOTAL PROTEIN 6.8 GM/DL (6.4-8.2)
[2018-03-04 21:20] LABS: ALKALINE PHOSPHATASE 61 U/L (45-117)
[2018-03-04] MEDS ORDERED: METO1TAB43 PO (21:39)
[2018-03-04 22:17] VITALS: BP 141/59; PULSE 70; RESP 16; TEMP 98.5; O2SAT 95
[2018-03-04] MEDS ORDERED: FENT50DI T-DERMAL (22:22)
[2018-03-04] MEDS ORDERED: ACETAMINOPHEN/HYDROcodone 325 MG/5 MG TAB PO ONE (22:30)
[2018-03-04 23:13] VITALS: BP 136/68; PULSE 68; RESP 16; O2SAT 97
== END 2018-03-04 23:18 | disposition home or self-care (01) ==
LOC: PHED 19:24
DX: L03.116 Cellulitis of left lower limb (principal); M54.2 Cervicalgia; R73.03 Prediabetes; I50.9 Heart failure, unspecified; I48.91 Unspecified atrial fibrillation
CPT/HCPCS: 80053; 85025; 96365; 99284; J0875; J7060